=== PATIENT | male | born 1975 | race Caucasian/White ===

== ENCOUNTER 2022-09-22 11:03 | Emergency (ER) | payer OTHER, SELFPAY ==
[2022-09-22] VITALS (7 sets, daily range): BP systolic 129–147; BP diastolic 81–104; PULSE 76–96; RESP 18–20; TEMP 36.8; O2SAT 97–100; BMI 26.1
--- NOTE | 2022-09-22 11:29 | ECG_ITS ---
APPROVED REPORT Exam: Resting ECG HR:85 bpm ECG Measurements Heart Rate 85 AXES CA 177 P 62 QRSd 104 QRS 8 QT 346 T 14 QTc 388 Conclusion SINUS RHYTHM POSSIBLE ANTERIOR MYOCARDIAL INFARCTION , OF INDETERMINATE AGE [30 ms Q WAVE IN V3/V4, OR R < 0.2 mV IN V4] ABNORMAL ECG UNCONFIRMED REPORT Electronically signed by : Rigo Clay MD 09/22/2022 17:12:23
[2022-09-22 11:51] LABS: Basophils # 0.1 K/mm3 (0-0.2); Basophils % 0.7 % (0.1-2.0); Eosinophils # 0.1 K/mm3 (0.0-0.4); Eosinophils % 1.2 % (0.1-12.0); Hematocrit 47.2 % (42.0-52.0); Hemoglobin 15.6 g/dL (14.1-18.0); Lymphocytes # 2.4 K/mm3 (0.7-4.5); Mean Platelet Volume 8.1 fl (7.4-10.4); Monocytes # 0.4 K/mm3 (0.1-1.0); Monocytes % 4.6 % (1.7-9.3); Neutrophils # 5.6 K/mm3 (1.8-7.8); Neutrophils % 65.5 % (37.0-80.0); Platelet Count 291 K/mm3 (142-424); Red Blood Count 5.19 M/mm3 (4.60-6.20); Red Cell Distribution Width 13.1 % (11.5-17.5); White Blood Count 8.5 K/mm3 (4.8-10.8)
[2022-09-22 11:55] LABS: Alanine Aminotransferase 33 U/L (12-78); Albumin Level 4.6 g/dl (3.5-5.0); Albumin/Globulin Ratio 2.1 (1.1-1.8); Alkaline Phosphatase 52 U/L (38-126); Anion Gap 11.6 mEq/L (5-15); Aspartate Amino Transferase 34 U/L (17-59); Bilirubin,Total 0.7 mg/dl (0.2-1.3); Blood Urea Nitrogen 15 mg/dl (9-20); Calcium 9.4 mg/dl (8.4-10.2); Carbon Dioxide 29 mmol/L (22.0-30.0); Chloride 99 mmol/L (98-107); Creatinine Clearance Estimated 146 mL/min (50-200); Estimated Glomerular Filt Rate 121 ml/min (>60); GFR (African American) 147 ML/MIN (>60); Globulin 2.2 g/dL (1.3-3.2); Glucose 131 mg/dl (74-100); Potassium 3.6 mmoL/L (3.5-5.1); Sodium 136 mmol/L (136-145); Total Protein,Serum 6.8 g/dl (6.3-8.2)
[2022-09-22 12:09] LABS: Troponin I < 0.01 ng/ml (0.00-0.034)
--- NOTE | 2022-09-22 12:14 | [facility].EDGENADL ---
Discharge Plan Disposition Patient Disposition: Home, Self-Care Condition: Good Referrals Follow up/Referrals: Provider,Referral, [Primary Care Provider] - See instructions Activity Restrictions/Add. Instructions Additional Instructions/Restrictions: You were evaluated in the emergency department today. Please follow-up with your primary care provider over the next 48 hours. Encourage orally hydrate is much as possible. Return to the emergency department for any new or worsening symptoms. Clinical Impressions Clinical Impression: Light-headedness Instructions Patient Instructions: Dizziness, Nonvertigo Discharge ED Provider: Helene Guido Adult HPI General Chief complaint: Dizziness Stated complaint: Dizzy, Lightheaded Time Seen by Provider: 09/22/22 11:17 Mode of Arrival: Ambulatory Source of Information: Patient Limitations: No Limitations Description of Symptoms (Recalled from ER Triage Doc. by RN): pt reports has been having dizzy spells. Pt reports hx of vertigo. Pt denies n/v/d, chest pain or SOA. History of Present Illness HPI narrative: This patient is a 47-year-old male with history of vertigo and atrial fibrillation status post ablation presented to the emergency department for evaluation of lightheadedness. He reports that he is here on vacation and has been drinking a lot, but has not over the last 24 hours. He states that today he has felt lightheaded, especially when changing positions. He denies any true dizziness or sensation of the room is spinning. He denies any syncope. He denies any fever, chills, chest pain, shortness of breath, abdominal pain, nausea, vomiting, changes bowel movements, or other concerns. He states that he does not feel like he has been hydrating very well. Related Data Allergies Allergy/AdvReac Type Severity Reaction Status Date / Time No Known Allergies Allergy Verified 09/22/22 11:25 PFSH PFS Social History Smoking Status: Never smoker alcohol intake: current current occupational status: employed Travel in the last 8 weeks: None ROS Obtained: Yes All systems reviewed & no additional complaints except as documented 14 point review of systems obtained and negative except as mentioned in HPI. Physical Exam General General appearance: alert and in no apparent distress Head Head exam: atraumatic and normocephalic Eye Eye exam: Present normal appearance and EOMI ENT ENT exam: Present normal exam, normal oropharynx and mucous membranes moist Neck Neck exam: Present normal inspection and full ROM Chest Chest inspection: Present normal inspection Respiratory Respiratory exam: Present normal lung sounds bilaterally; Absent respiratory distress or wheezes Cardiovascular Cardiovascular exam: Present regular rate and normal rhythm Abdominal Exam Abdominal exam: Present soft; Absent distention, tenderness or guarding Extremities Exam Extremities exam: Present normal inspection and full ROM Back Exam Back exam: Present normal inspection and full ROM Neurological Exam Neurological exam: Present alert, oriented X3 and CN II-XII intact; Absent motor sensory deficit Psychiatric Psychiatric exam: Present normal affect Skin Skin exam: Present warm and dry Lymphatic Lymphatic Findings: no adenopathy Medical Decision Making Pratik Inquiry Pt receiving controlled substance: No Vital Signs: 09/22/22 11:28 09/22/22 11:30 09/22/22 11:04 Temperature 98.2 F Temperature Source Oral Pulse Rate 81 Pulse Rate [Orthostatic Lying Right Radial] 80 Pulse Rate [Orthostatic Sitting Right Radial] 87 Pulse Rate [Orthostatic Standing Right Radial] 89 Pulse Rate [Right Radial] 89 Respiratory Rate 20 18 Blood Pressure 141/96 H Blood Pressure [Orthostatic Lying Right Arm] 143/100 H Blood Pressure [Orthostatic Sitting Right Arm] 145/104 H Blood Pressure [Orthostatic Standing Right Arm] 139
== END 2022-09-22 14:25 | disposition home or self-care (01) ==
PROVIDERS: Emergency Provider Emergency Medicine
DX: R42 Dizziness and giddiness (principal)
CPT/HCPCS: 80053; 84484; 85025; 93005; 96365; 99284